=== PATIENT | male | born 1995 | race Hispanic/Latino ===

== ENCOUNTER 2018-04-17 12:21 | Emergency (ER) | payer OTHER ==
[2018-04-17] MEDS: NAPROXEN 250 MG TAB PO (14:45)
== END 2018-04-17 14:55 | disposition home or self-care (01) ==
LOC: M ED 12:21
DX: M47.817 Spondylosis without myelopathy or radiculopathy, lumbosacral region (principal)
CPT/HCPCS: 72220

== ENCOUNTER 2018-04-27 15:56 | Emergency (ER) | payer OTHER | END 2018-04-27 16:58 | disposition left against medical advice (07) | LOC: M ED 15:56 | DX: Z51.89 Encounter for other specified aftercare (principal); Z53.21 Procedure and treatment not carried out due to patient leaving prior to being seen by health care provider ==

== ENCOUNTER 2018-05-31 17:47 | Emergency (ER) | payer OTHER | END 2018-05-31 18:21 | disposition home or self-care (01) | LOC: M ED 17:47 | DX: T81.31XA Disruption of external operation (surgical) wound, not elsewhere classified, initial encounter (principal); Y92.9 Unspecified place or not applicable; Y93.9 Activity, unspecified; Z79.899 Other long term (current) drug therapy | CPT/HCPCS: 99282 ==

== ENCOUNTER 2018-06-16 12:14 | Emergency (ER) | payer OTHER | END 2018-06-16 14:06 | disposition home or self-care (01) | LOC: M ED 12:14 | DX: L05.91 Pilonidal cyst without abscess (principal); L30.9 Dermatitis, unspecified; Z87.2 Personal history of diseases of the skin and subcutaneous tissue | CPT/HCPCS: 99283 ==